=== PATIENT | female | born 1945 | race Caucasian/White ===

== ENCOUNTER 2018-04-12 08:25 | Emergency (ER) | payer MEDICARE ==
[2018-04-12 08:38] VITALS: BP 121/58
--- NOTE | 2018-04-12 08:45 | UC ---
Lower Extremity/Ankle HPI - HPI Summary HPI Summary: 72-year-old female presents with complaints of right knee, right ankle, left ankle, and left foot pain after slipping and falling down approximately 3-4 stairs yesterday. States she is unsure of the exact mechanism of injury. Thinks she may have rolled her ankle when she slipped. States she landed on her buttocks after fall. Denies hitting head or any loss of consciousness. No complaints of neck, back, or hip pain. States she can bear weight on the right leg however has been unable to bear any weight on the left ankle or foot since the injury. Reports decreased range of motion to the left ankle due to pain. Denies any decreased sensation. - History of Current Complaint Chief Complaint: UCLowerExtremity Stated Complaint: FOOT/ANKLE INJURY Time Seen by Provider: 04/12/18 08:42 Hx Obtained From: Patient Pain Intensity: 9 - Allergies/Home Medications Allergies/Adverse Reactions: Allergies Allergy/AdvReac Type Severity Reaction Status Date / Time acetaminophen Allergy Vomiting Verified 04/12/18 08:40 [From Darvocet-N] atorvastatin [From Lipitor] Allergy Vomiting Verified 04/12/18 08:40 clarithromycin [From Biaxin] Allergy Vomiting Verified 04/12/18 08:40 erythromycin base Allergy Vomiting Verified 04/12/18 08:40 propoxyphene Allergy Vomiting Verified 04/12/18 08:40 [From Darvocet-N] sertraline [From Zoloft] Allergy Vomiting Verified 04/12/18 08:40 Sulfa (Sulfonamide Allergy Vomiting Verified 04/12/18 08:40 Antibiotics) pavil Allergy Vomiting Uncoded 04/12/18 08:40 wetchol Allergy Vomiting Uncoded 04/12/18 08:40 Home Medications: Home Medications Acyclovir [Zovirax] 400 mg PO DAILY 04/12/18 [History Confirmed 04/12/18] Amlodipine Besylate [Norvasc 5 mg tab] 5 mg PO DAILY 04/12/18 [History Confirmed 04/12/18] Citalopram TAB* [CeleXA TAB*] 20 mg PO DAILY 04/12/18 [History Confirmed ] Esomeprazole Magnesium [Nexium] 40 mg PO DAILY 04/12/18 [History Confirmed 04/12] Ezetimibe/Simvastatin [Vytorin 10-40 mg Tablet] 1 each PO QPM 04/12/18 [History Confirmed 04/12/18] Folic Acid 1 mg PO DAILY 04/12/18 [History Confirmed 04/12/18] Losartan/Hydrochlorothiazide [Losartan Potassium/Hydroc 100-12.5 mg] 1 tab PO DAILY 04/12/18 [History Confirmed 04/12/18] Magnesium Oxide [Magnesium 400 mg] 1 tab PO QPM 04/12/18 [History Confirmed ] Perry-3 Fatty Acids/Fish Oil [Fish Oil 1,000 mg Capsule] 1 tab PO DAILY [History Confirmed 04/12/18] Vitamin E 100 unit PO DAILY 04/12/18 [History Confirmed 04/12/18] PMH/Surg Hx/FS Hx/Imm Hx Endocrine History: Dyslipidemia Cardiovascular History: Hypertension GI/ History: Gastroesophageal Reflux Neurological History: Other - Peripheral neuropathy - Surgical History Surgical History: None - Family History Known Family History: Positive: Non-Contributory - Social History Occupation: Retired Lives: Alone Alcohol Use: Occasionally Substance Use Type: None Smoking Status (MU): Former Smoker When Did the Patient Quit Smoking/Using Tobacco: 22 years ago Review of Systems All Other Systems Reviewed And Are Negative: Yes Constitutional: Negative: Fever, Chills Skin: Negative: Bruising Respiratory: Negative: Shortness Of Breath Cardiovascular: Negative: Palpitations, Chest Pain Gastrointestinal: Negative: Abdominal Pain, Vomiting, Diarrhea, Nausea Genitourinary: Positive: Negative Motor: Negative: Weakness Neurovascular: Negative: Decreased Sensation Musculoskeletal: Positive: Other: - See HPI Neurological: Positive: Negative Is Patient Immunocompromised?: No Physical Exam - Summary Physical Exam Summary: GENERAL APPEARANCE: Well developed, well nourished, alert and cooperative, and appears to be in no acute distress. HEAD: Atraumatic. normocephalic. EYES: PERRL, EOM intact. Vision is grossly intact. NECK: Neck supple, non-tender. CARDIAC: Normal S1 and S2. No S3, S4 or murmurs. Rhythm is regular. There is no peripheral edema, cyanosis or pallor. Extremities are warm and well perfused. Capillary refill is less than 2 seconds. Peripheral pulses intact. LUNGS: Clear to auscultation without rales, rhonchi, wheezing or diminished breath sounds. ABDOMEN: Positive bowel sounds. Soft, nondistended, nontender. No guarding or rebound. No masses or hepatosplenomegally. MUSKULOSKELETAL: Mild tenderness right knee along the lateral joint line. Full painless ROM. No gross deformity, swelling, or ecchymosis noted. Point tenderness over the right lateral malleolus. Full ROM. No gross deformity, swelling, or ecchymosis. Generalized tenderness of the left medial ankle and foot. No gross deformity, swelling, or ecchymosis. BACK: Examination of the spine reveals normal posture, no spinal deformity or tenderness, decreased range of motion or muscular spasm. NEUROLOGICAL: Strength and sensation symmetric and intact throughout. SKIN: Skin normal color, texture and turgor with no lesions or eruptions. Triage Information Reviewed: Yes Vital Signs: Initial Vital Signs Temp 96 F 04/12/18 08:32 Pulse 68 04/12/18 08:32 Resp 18 04/12/18 08:32 BP 121/58 04/12/18 08:32 Pulse Ox 97 04/12/18 08:32 Vital Signs Reviewed: Yes Diagnostics - Laboratory Diagnostic Studies Completed/Ordered: Order Information: ANKLE LEFT 3+VWS. Accession Number: [id number]. CPT: 18427. HISTORY: pain s/p fall. COMPARISONS: None. VIEWS: 3 , Frontal, lateral, and oblique views of the left ankle. FINDINGS: BONE DENSITY: Normal. BONES: There is no displaced fracture. There are posterior calcaneal enthesophytes. JOINTS: There is no arthropathy. ALIGNMENT: There is no dislocation. SOFT TISSUES: Unremarkable. OTHER FINDINGS: None. IMPRESSION: NO ACUTE OSSEOUS INJURY. IF SYMPTOMS PERSIST , RECOMMEND REPEAT IMAGING. Order Information: FOOT LEFT 3+ VWS. Accession Number: [id number]. CPT: 30339. HISTORY: pain s/p fall. COMPARISONS: None. VIEWS: 3 , Frontal, lateral, and oblique views of the left foot. FINDINGS: BONE DENSITY: Normal. BONES: There is no displaced fracture. There is an enthesophyte of the base of the fifth. metatarsal. JOINTS: There is osteoarthritis of the first MTP joint. ALIGNMENT: There is no dislocation. SOFT TISSUES: There is mild soft tissue swelling of the forefoot. OTHER FINDINGS: None. IMPRESSION: SOFT TISSUE SWELLING. NO ACUTE OSSEOUS INJURY. IF SYMPTOMS PERSIST, RECOMMEND REPEAT. IMAGING. Patient Name: KYLE FLETCHER Medical Record#: [id number]. Ordering Physician: Kody Tillman NP Acct.#: [id number]. : 1945 Age: 72 Sex: F Location: [facility]. Exam Date: 04/12/18849 ADM Status: REG ER. Order Information: ANKLE RIGHT 3+VWS. Accession Number: [id number]. CPT: 54787. HISTORY: pain s/p fall. COMPARISONS: None. VIEWS: 3 , Frontal, lateral, and oblique views of the right ankle. FINDINGS: BONE DENSITY: Normal. BONES: There is no displaced fracture. There are posterior calcaneal enthesophytes. JOINTS: There is no arthropathy. ALIGNMENT: There is no dislocation. SOFT TISSUES: Unremarkable. OTHER FINDINGS: None. IMPRESSION: NO ACUTE OSSEOUS INJURY. IF SYMPTOMS PERSIST, RECOMMEND REPEAT IMAGING. Lower Extremity Course/Dx - Course Course Of Treatment: 72-year-old female presents with complaints of right knee, right ankle, left ankle, and left foot pain after slipping and falling down approximately 3-4 stairs yesterday. States she is unsure of the exact mechanism of injury. Thinks she may have rolled her ankle when she slipped. States she landed on her buttocks after fall. Denies hitting head or any loss of consciousness. No complaints of neck, back, or hip pain. States she can bear weight on the right leg however has been unable to bear any weight on the left ankle or foot since the injury. Reports decreased range of motion to the left ankle due to pain. Denies any decreased sensation. Afebrile. Vital signs stable. Exam reveals older adult female in no acute distress. Mild tenderness to the right knee along the lateral joint line however had full painless range of motion and there was no evidence of ecchymosis, swelling, laxity, or gross deformity. She has some point tenderness over the lateral malleolus of the right ankle without ecchymosis, swelling, or gross deformity. Generalized tenderness with palpation over the medial aspect of the left ankle and foot again without any ecchymosis, swelling, or gross deformity. X-rays of the right ankle, left ankle, and left foot are negative for acute fracture or dislocation. Recommending conservative treatment for bilateral ankle sprain and left foot sprain with OTC analgesics and RICE. She was given referral to orthopedic surgery for follow up if no improvement in symptoms. Warning symptoms were reviewed. Verbalizes understanding and agrees with POC. - Differential Dx/Diagnosis Differential Diagnosis/HQI/PQRI: Contusion, Dislocation, Fracture (Closed), Sprain Provider Diagnosis: Right ankle sprain, Left ankle sprain, Sprain of left foot Discharge - Sign-Out/Discharge Documenting (check all that apply): Patient Departure All imaging exams completed and their final reports reviewed: Yes - Discharge Plan Condition: Stable Disposition: HOME Patient Education Materials: Ankle Sprain (ED), Foot Sprain (ED) Referrals: Jose Hester MD [Primary Care Provider] - Ciro Hood MD [Medical Doctor] - 7 Days (If no improvement in symptoms.) Additional Instructions: The x-rays performed today did not show any evidence of a fracture or dislocation. I suspect that you have a sprain of both ankles and the left foot. Rest as much as possible. You may walk and bear weight as tolerated. Apply ice to the affected areas for 15-20 minutes at least 4 times a day for next few days. Keep your legs elevated while sitting to help reduce swelling. May take an over the counter pain medication such as ibuprofen according to directions as needed for pain. Follow up with Dr. Boucher, orthopedic surgery, in 7 days if there is no improvement in your symptoms. Call for appointment. Seek immediate medical attention in the emergency room for pain that is not managed with pain medication, increased swelling of the leg, foot, or ankles, your leg, foot, or toes become blue or pale in color, you develop numbness or tingling, or have any worsening of symptoms. - Billing Disposition and Condition Condition: STABLE Disposition: Home
== END 2018-04-12 09:40 | disposition home or self-care (01) ==
LOC: UCEAST 08:25
DX: S93.401A Sprain of unspecified ligament of right ankle, initial encounter (principal); S93.402A Sprain of unspecified ligament of left ankle, initial encounter; S93.602A Unspecified sprain of left foot, initial encounter; W10.9XXA Fall (on) (from) unspecified stairs and steps, initial encounter; Y92.9 Unspecified place or not applicable; E78.5 Hyperlipidemia, unspecified; I10 Essential (primary) hypertension; K21.9 Gastro-esophageal reflux disease without esophagitis; Z88.6 Allergy status to analgesic agent; Z88.1 Allergy status to other antibiotic agents; Z88.5 Allergy status to narcotic agent; Z88.2 Allergy status to sulfonamides; Z88.8 Allergy status to other drugs, medicaments and biological substances; Z87.891 Personal history of nicotine dependence
CPT/HCPCS: 99211; G0463